=== PATIENT | male | born 1965 | race African-American/Black ===

== ENCOUNTER 2020-11-04 15:08 | Emergency (ER) | payer MEDICARE ==
[~2020-11-04] VITALS: Ht 170.2 cm; Wt 63.5 kg
[2020-11-04] MEDS ORDERED: diphenhydrAMINE HCL 50 MG CAPSULE PO ONE (15:30)
[2020-11-04] MEDS ORDERED: FAMOTIDINE (20 MG) 20 MG TABLET PO ONE (15:30)
[2020-11-04] MEDS ORDERED: predniSONE 10 MG TABLET PO ONE (15:30)
[2020-11-04] MEDS ORDERED: diphenhydrAMINE HCL 50 MG CAPSULE ONE (15:32)
[2020-11-04] MEDS ORDERED: FAMOTIDINE (20 MG) 20 MG TABLET ONE (15:33)
[2020-11-04] MEDS ORDERED: predniSONE 20 MG TABLET ONE (15:34)
--- NOTE | 2020-11-04 15:42 | NUR ---
Patient awake alert non distress patient able to speak full sentences he spitting out oral meds want injection MD aware .
[2020-11-04] MEDS ORDERED: diphenhydrAMINE HCL 50 MG/ML VIAL ONE (15:45)
[2020-11-04] MEDS ORDERED: methylPREDNISolone SOD SUCC 125 MG/2ML VIAL ONE (15:45)
[2020-11-04] MEDS ORDERED: diphenhydrAMINE HCL 50 MG/ML VIAL IM ONE (16:00)
[2020-11-04] MEDS ORDERED: methylPREDNISolone SOD SUCC 125 MG/2ML VIAL IM ONE (16:00)
[2020-11-04 16:49] VITALS: BP 134/67
--- NOTE | 2020-11-04 16:49 | NUR ---
Patient discharged to home in stable condition. Written and verbal after care instructions given. Patient verbalizes understanding of instruction.
== END 2020-11-04 16:56 | disposition home or self-care (01) ==
LOC: ER 15:15
DX: T78.1XXA Other adverse food reactions, not elsewhere classified, initial encounter (principal); L50.9 Urticaria, unspecified; I10 Essential (primary) hypertension; X58.XXXA Exposure to other specified factors, initial encounter
CPT/HCPCS: 96372 ×2; 99284; J1200; J2930; J7512; Q0163

== ENCOUNTER 2023-11-14 16:55 | Emergency (ER) | payer MEDICARE, OTHER ==
[~2023-11-14] VITALS: Ht 167.6 cm; Wt 63.5 kg
[2023-11-14] MEDS ORDERED: methylPREDNISolone SOD SUCC 125 MG/2ML VIAL ONE (17:46)
[2023-11-14] MEDS ORDERED: FAMOTIDINE/PF INJ 20 MG/2 ML VIAL IV ONE (17:46)
[2023-11-14] MEDS ORDERED: diphenhydrAMINE HCL 50 MG/ML VIAL ONE ×2 (17:46→17:55)
[2023-11-14] MEDS: diphenhydrAMINE HCL 50 MG/ML VIAL IV ONE (18:01)
[2023-11-14] MEDS: FAMOTIDINE/PF INJ 20 MG/2 ML VIAL IV ONE (18:01)
[2023-11-14] MEDS: methylPREDNISolone SOD SUCC 125 MG/2ML VIAL IV ONE (18:01)
[2023-11-14 18:08] LABS: BASOPHILS # (AUTO) 0.2 K/uL (0.0-0.2); BASOPHILS % (AUTO) 4.2 % (0.0-2.0); EOSINOPHILS # (AUTO) 0.2 K/uL (0.0-0.7); EOSINOPHILS % (AUTO) 4.2 % (0.0-6.0); HEMATOCRIT 34 % (39-51); HEMOGLOBIN 10.4 g/dL (13.5-17.5); LYMPHOCYTES # (AUTO) 1.8 K/uL (0.8-4.8); LYMPHOCYTES % (AUTO) 37.2 % (20.0-44.0); MEAN CORPUSCULAR HEMOGLOBIN 22 PG (26.0-33.0); MEAN CORPUSCULAR HGB CONC 31 g/dl (31.0-36.0); MEAN CORPUSCULAR VOLUME 71 fL (80-96); MONOCYTES # (AUTO) 0.5 K/uL (0.1-1.30); NEUTROPHILS # (AUTO) 2.1 K/uL (1.8-8.9); NEUTROPHILS % (AUTO) 43.4 % (43.0-81.0); PLATELET COUNT (AUTO) 215 K/uL (150-450); RED CELL DISTRIBUTION WIDTH 16.2 % (11.5-15.0); WHITE BLOOD COUNT (AUTO) 4.8 K/uL (4.3-11.0)
[2023-11-14 18:16] LABS: CALCIUM, SERUM 8.2 mg/dL (8.5-10.1); POTASSIUM 3.3 mmol/L (3.5-5.1)
[2023-11-14 18:21] LABS: ALBUMIN 2.6 g/dL (3.4-5.0); BILIRUBIN,TOTAL 0.1 mg/dL (0.2-1.0)
[2023-11-14] MEDS ORDERED: PRED20TA PO (19:50)
[2023-11-14 20:04] VITALS: BP 124/80; TEMP 98.5; O2SAT 100
== END 2023-11-14 20:06 | disposition home or self-care (01) ==
LOC: ER 17:45
DX: R06.02 Shortness of breath (principal); K14.8 Other diseases of tongue; T78.1XXA Other adverse food reactions, not elsewhere classified, initial encounter; E11.9 Type 2 diabetes mellitus without complications; I10 Essential (primary) hypertension; Z79.899 Other long term (current) drug therapy; Z91.010 Allergy to peanuts; X58.XXXA Exposure to other specified factors, initial encounter
CPT/HCPCS: 99284; 96374; 96375; 85025; 36415; 80053; J1200; J3490; J2930

== ENCOUNTER 2023-11-16 16:50 | Emergency (ER) | payer OTHER ==
[~2023-11-16] VITALS: Ht 167.6 cm; Wt 63.5 kg
[~2023-11-16 16:50] MED LIST: PRED20TA PO
[2023-11-16] MEDS ORDERED: methylPREDNISolone SOD SUCC 125 MG/2ML VIAL IV ONE (19:00)
[2023-11-16] MEDS ORDERED: FAMOTIDINE/PF INJ 20 MG/2 ML VIAL IV ONE ×2 (19:00→19:22)
[2023-11-16] MEDS ORDERED: methylPREDNISolone SOD SUCC 125 MG/2ML VIAL ONE (19:22)
[2023-11-16] MEDS ORDERED: FAMOTIDINE (20 MG) 20 MG TABLET PO ONE (21:00)
[2023-11-16] MEDS ORDERED: methylPREDNISolone SOD SUCC 125 MG/2ML VIAL IM ONE (21:00)
[2023-11-16] MEDS ORDERED: FAMOTIDINE (20 MG) 20 MG TABLET ONE (21:21)
[2023-11-16] MEDS ORDERED: DIPH-530 PO (23:38)
[2023-11-17 00:31] VITALS: BP 131/75; TEMP 98; O2SAT 99
== END 2023-11-17 00:31 | disposition home or self-care (01) ==
LOC: ER 17:00
DX: R22.9 Localized swelling, mass and lump, unspecified (principal); T78.1XXA Other adverse food reactions, not elsewhere classified, initial encounter; I10 Essential (primary) hypertension; E11.9 Type 2 diabetes mellitus without complications; Z79.899 Other long term (current) drug therapy; Z88.1 Allergy status to other antibiotic agents; X58.XXXA Exposure to other specified factors, initial encounter
CPT/HCPCS: 99283; 96372; J3490; J2930

== ENCOUNTER 2023-11-21 15:22 | Emergency (ER) | payer OTHER ==
[~2023-11-21] VITALS: Ht 167.6 cm; Wt 62.6 kg
[~2023-11-21 15:22] MED LIST changes: +DIPH-530 PO
[2023-11-21 15:34] VITALS: TEMP 98.4
[2023-11-21] MEDS ORDERED: diphenhydrAMINE HCL 25 MG in IV D5W 50 ML IV ONE (16:00)
[2023-11-21] MEDS ORDERED: MIDAZOLAM HCL 5 MG/5ML VIAL ONE (16:25)
[2023-11-21] MEDS: MIDAZOLAM HCL 5 MG/5ML VIAL IV ONE (16:31)
[2023-11-21] MEDS ORDERED: diphenhydrAMINE HCL 50 MG/ML VIAL ONE (18:43)
[2023-11-21] MEDS: diphenhydrAMINE HCL 50 MG/ML VIAL IV ONE (18:57)
[2023-11-21] MEDS ORDERED: OLAN10TA3 PO (19:16)
[2023-11-21] MEDS ORDERED: DIPH-530 PO (19:16)
[2023-11-21 21:12] VITALS: BP 126/80; O2SAT 99
== END 2023-11-21 21:13 | disposition home or self-care (01) ==
LOC: ER 15:22
DX: L29.8 Other pruritus (principal); G24.09 Other drug induced dystonia; T43.4X5A Adverse effect of butyrophenone and thiothixene neuroleptics, initial encounter; I10 Essential (primary) hypertension; E11.9 Type 2 diabetes mellitus without complications; Z91.010 Allergy to peanuts
CPT/HCPCS: 99284; 96374; 96375; J1200; J2250